=== PATIENT | female | born 1975 | race Caucasian/White ===

== ENCOUNTER → 2016-08-18 | Outpatient (CLI) | payer BC | LOC: FIMAGING 13:10 | DX: Z12.31 Encounter for screening mammogram for malignant neoplasm of breast (principal) | CPT/HCPCS: G0202 ==

== ENCOUNTER 2016-09-27 06:52 | Observation (INO) | payer BC ==
[2016-09-27] MEDS ORDERED: NS 1,000 ML IV ONE (06:54)
[2016-09-27] MEDS ORDERED: MIDAZOLAM 2 MG/2 ML VIAL IVP ONE (06:54)
--- NOTE | 2016-09-27 07:16 | CPEKG ---
Heart Rate: 76 RR Interval: 789 P-R Interval: 172 QRSD Interval: 90 QT Interval: 380 QTC Interval: 428 P [place]: 60 QRS [place]: 16 T Wave [place]: 52 EKG Severity - ABNORMAL ECG - EKG Impression: SINUS RHYTHM EKG Impression: MULTIPLE PREMATURE ATRIAL COMPLEXES EKG Impression: ANTERIOR INFARCT, OLD EKG Impression: COMPARED WITH 04/06/2015, LEFT ATRIAL ECTOPY NOW NOTED Electronically Signed By: Yajaira Messer 27-Sep-2016 16:37:46
[2016-09-27 07:36] LABS: % IMMATURE GRANULYOCYTES 0.4 % (0.0-1.1); ABSOLUTE IMMATURE GRANULOCYTES 0.03 10^3/uL (0.00-0.10); ADD DIFF? NO; ADD MORPH? NO; ADD SCAN? NO; ATYPICAL LYMPHOCYTE FLAG 10 (0-99); FRAGMENT RBC FLAG 0 (0-99); HEMOGLOBIN 14.7 g/dL (12.6-16.3); LEFT SHIFT FLG 0 (0-99); LIPEMIA HEMOLYSIS FLAG 90 (0-99); MEAN CELL HEMOGLOBIN 32.4 pg (27.9-34.1); MEAN CELL VOLUME 92.5 fL (81.5-99.8); MEAN PLATELET VOLUME 9.1 fL (8.7-11.7); PLATELET CLUMPS FLAG 0 (0-99); PLATELET COUNT 244 10^3/uL (150-400); RED BLOOD CELL COUNT 4.54 10^6/uL (4.18-5.33); RED CELL DISTRIBUTION WIDTH 12.4 % (11.5-15.2)
[2016-09-27 07:45] LABS: APTT 27.4 SEC (23.0-38.0); INR 1.01 (0.83-1.16); PROTIME(PATIENT) 13.2 SEC (12.0-15.0)
[2016-09-27 08:08] LABS: ANION GAP 11 mEq/L (8-16); CALCIUM 9.4 mg/dL (8.5-10.4); CARBON DIOXIDE 24 mEq/l (22-31); CHLORIDE 107 mEq/L (97-110); CREATININE 0.7 mg/dL (0.6-1.0); GLOMERULAR FILTRATION RATE > 60; GLUCOSE 95 mg/dL (70-100); POTASSIUM 3.9 mEq/L (3.5-5.2); SODIUM 142 mEq/L (134-144)
[2016-09-27] MEDS ORDERED: LIDOCAINE 1% 30 ML SDV ONE (08:17)
[2016-09-27] MEDS ORDERED: ISOPROTERENOL HCL 0.2 MG/ML 5ML AMP ONE (08:17)
[2016-09-27] MEDS ORDERED: BUPIVACAINE 0.5% 30 ML SDV ONE ×2 (08:17→11:23)
[2016-09-27] MEDS ORDERED: HEPARIN 10,000 UNIT/10 ML MDV ONE (08:17)
[2016-09-27] MEDS ORDERED: PHENYLEPHRINE HCL 100 MCG/ML SYR ONE (09:07)
[2016-09-27] MEDS ORDERED: ATROPINE SULFATE 1 MG/10 ML SYR ONE (11:52)
[2016-09-27] MEDS ORDERED: OXYCODONE/APAP 5/325 TAB PO PRN (12:00)
[2016-09-27] MEDS ORDERED: ACETAMINOPHEN 325 MG TAB PO PRN (12:00)
--- NOTE | 2016-09-27 12:07 | CPEKG ---
Heart Rate: 62 RR Interval: 968 P-R Interval: 172 QRSD Interval: 88 QT Interval: 412 QTC Interval: 419 P [place]: 49 QRS [place]: 25 T Wave [place]: 55 EKG Severity - ABNORMAL ECG - EKG Impression: SINUS RHYTHM EKG Impression: ANTERIOR INFARCT, OLD EKG Impression: COMPARED WITH 09/27/2016 AT 7:14 A.M., ATRIAL ECTOPY RESOLVED Electronically Signed By: Yajaira Messer 27-Sep-2016 16:36:36
[2016-09-27] MEDS ORDERED: IBUPROFEN 200 MG TAB PO PRN (20:16)
[2016-09-27] MEDS ORDERED: BISMUTH SUBSALICYLATE 524 MG/30 ML UDL PO PRN (20:17)
[2016-09-27] MEDS ORDERED: DILTIAZEM CD 180 MG CAP PO SCH (21:00)
[2016-09-27] MEDS: FLECAINIDE ACETATE 100 MG TAB PO SCH (21:42)
[2016-09-28 04:57] LABS: % IMMATURE GRANULYOCYTES 0.4 % (0.0-1.1); ABSOLUTE IMMATURE GRANULOCYTES 0.03 10^3/uL (0.00-0.10); ADD DIFF? NO; ADD MORPH? NO; ADD SCAN? NO; ATYPICAL LYMPHOCYTE FLAG 0 (0-99); FRAGMENT RBC FLAG 0 (0-99); HEMATOCRIT 40.3 % (38.0-47.0); HEMOGLOBIN 13.6 g/dL (12.6-16.3); LEFT SHIFT FLG 0 (0-99); LIPEMIA HEMOLYSIS FLAG 80 (0-99); MEAN CELL HEMOGLOBIN 32.2 pg (27.9-34.1); MEAN CELL HEMOGLOBIN CONCENTR. 33.7 g/dL (32.4-36.7); MEAN CELL VOLUME 95.5 fL (81.5-99.8); MEAN PLATELET VOLUME 9.6 fL (8.7-11.7); PLATELET CLUMPS FLAG 0 (0-99); PLATELET COUNT 215 10^3/uL (150-400); RED BLOOD CELL COUNT 4.22 10^6/uL (4.18-5.33); RED CELL DISTRIBUTION WIDTH 12.5 % (11.5-15.2)
[2016-09-28 05:06] LABS: INR 1.07 (0.83-1.16); PROTIME(PATIENT) 13.8 SEC (12.0-15.0)
[2016-09-28 05:24] LABS: ANION GAP 6 mEq/L (8-16); CALCIUM 8.7 mg/dL (8.5-10.4); CARBON DIOXIDE 22 mEq/l (22-31); CHLORIDE 112 mEq/L (97-110); CREATININE 0.7 mg/dL (0.6-1.0); GLOMERULAR FILTRATION RATE > 60; GLUCOSE 92 mg/dL (70-100); POTASSIUM 4.1 mEq/L (3.5-5.2); SODIUM 140 mEq/L (134-144)
[2016-09-28 05:36] LABS: CREATINE KINASE-MB FRACTION 2.08 ng/mL (0-3.19); TROPONIN I 0.232 ng/mL (0-0.034)
[2016-09-28 07:26] VITALS: BP 102/80; PULSE 67; RESP 12; TEMP 98.2; O2SAT 98
[2016-09-28] MEDS: FLECAINIDE ACETATE 100 MG TAB PO SCH (08:43)
--- NOTE | 2016-09-28 08:55 | CPEKG ---
Heart Rate: 61 RR Interval: 984 P-R Interval: 164 QRSD Interval: 92 QT Interval: 404 QTC Interval: 407 P [place]: 42 QRS [place]: 46 T Wave [place]: 64 EKG Severity - BORDERLINE ECG - EKG Impression: SINUS RHYTHM EKG Impression: CONSIDER ANTERIOR INFARCT Electronically Signed By: Yajaira Messer 28-Sep-2016 09:44:14
[2016-09-28] MEDS ORDERED: ASPIRIN EC 81 MG TAB PO SCH (09:00)
[2016-09-28] MEDS ORDERED: MULTIVITAMINS 1 EACH TAB PO SCH (09:00)
--- NOTE | 2016-09-28 13:31 | ECHO ---
[id number] + + [address] : : [place] [address] : : [phone] + + Adult Echocardiographic Report + + :Name: OUMAR SUTHERLAND Date: 09/28/2016 09:11 AM : : Hospital Admission Number: [id number] Loc ation: 204: :: 1975 Gender: Female Height: 67 in : :Age: 40 yrs Race: WH Weight: 199 lb : :Reason For Study: F/U post EP study : : BSA: 2.0 me ters2 : :History: h/o bicuspid AV : + + MMode/2D Measurements \T\ Calculations IVSd: 0.91 cm RVDd: 2.8 cm FS: 31.0 % Ao root diam: LVPWd: 0.95 cm LVIDd: 4.9 cm EDV(Teich): 2.6 cm LVIDs: 3.3 cm 110.2 ml ESV(Teich): 45.7 ml EF(Teich): 58.6 % LVOT diam: 2.1 cmLVLd ap4: 9.2 cm SV(MOD-sp4): LVOT area: EDV(MOD-sp4): 117.0 ml 3.3 cm2 169.0 ml LVLs ap4: 7.5 cm ESV(MOD-sp4): 52.0 ml EF(MOD-sp4): 69.2 % Normal Measurement Values: + + :LVIDd (3.5-5.7cm) IVSd (0.6-1.1cm) LVPWd (0.6-1.1cm) Aortic Root (2.0-3.7cm)Left Atrium (1.5-4.0cm): :LV Vol(d) (76-115ml) LV Vol(s) (29-48ml) Ejec Fraction (50-65%)PV Baljeet (0.6- 1.2m/s) TV Baljeet (0.4-1.0m/s) : :MV E Baljeet (0.8-1.0m/s)MV A Baljeet (0.3-1.0m/s)LVOT Baljeet (0.7-1.2m/s) Asc Ao Baljeet ( 0.9-1.8m/s) : + + Doppler Measurements \T\ Calculations MV E max baljeet: Ao V2 max: LV V1 mean PG: SV(LVOT): 98.7 cm/sec 206.3 cm/sec 2.9 mmHg 86.3 ml MV A max baljeet: Ao max P.0 mmHgLV V1 mean: 89.8 cm/sec Ao mean P.7 cm/sec MV E/A: 1.1 10.9 mmHg LV V1 VTI: 25.8 cm MV dec time: 0.32 sec Ao V2 mean: 158.8 cm/sec Ao V2 VTI: 50.3 cm STEPHANIE(I,D): 1.7 cm2 PA V2 max: TR max baljeet: 103.2 cm/sec 205.1 cm/sec PA max P.3 mmHg TR max P.8 mmHg RAP systole: 5.0 mmHg RVSP(TR): 21.8 mmHg Left Ventricle The left ventricle is normal in size and function. There is normal left ventricular wall thickness. Ejection Fraction = 60%. No regional wall motion abnormalities noted. Right Ventricle The right ventricle is normal in size and function. Atria The left atrial size is normal. Right atrial size is normal. There was no clot seen in the IVC. A patent foramen ovale is present. Mitral Valve The mitral valve is normal in structure and function. There is no mitral valve stenosis. There is trace to mild mitral regurgitation. Tricuspid Valve The tricuspid valve is normal in structure and function. There is trace to mild tricuspid regurgitation. Right ventricular systolic pressure is 22mmHg. Aortic Valve Bicuspid aortic valve with raphe. Mild valvular aortic stenosis. Trace aortic regurgitation. Pulmonic Valve The pulmonic valve is normal in structure and function. Trace pulmonic valvular regurgitation. Great Vessels The aortic root is normal size. No Doppler or imaging evidence of an aortic coarctation. Normal ascending aorta size. Pericardium/Pleural There is no pericardial effusion. Conclusion A two-dimensional transthoracic echocardiogram with M-mode and Doppler was performed. The left ventricle is normal in size and function. Ejection Fraction = 60%. There are no wall motion abnormalities. Bicuspid aortic valve. Trace aortic regurgitation. There is trace to mild mitral regurgitation. There is trace to mild tricuspid regurgitation. Right ventricular systolic pressure is 22mmHg. Trace pulmonic valvular regurgitation. No Doppler or imaging evidence of an aortic coarctation. Normal ascending aorta size. A patent foramen ovale is present. Final Reading Physician: Radha Varela signed on 09/28/2016 01:30 PM Ordering Physician: Claudio Murillo Performed By: Tania Heard
--- NOTE | 2016-09-28 13:43 | EPPROC ---
Electrophysiology Procedure Note: Procedure done 09/27/16 ELECTROPHYSIOLOGIC STUDY AND CATHETER MEDIATED ABLATION OF SLOW/FAST AV HORACIO REENTRY TACHYCARDIA AND PREMATURE ATRIAL BEATS PROCEDURES PERFORMED: 45724-28 EP evaluation with RA/RV/LA pace/record, with arrhythmia induction 60556-81 EP evaluation with RA/RV pace record, insert/reposition catheter, with arrhythmia induction 61108 Intracardiac catheter ablation, SVT arrhythmogenic focus Second arrhythmia 30072 3D mapping Fluoroscopy INDICATION: Frequent PAC Sustained palpitations PROCEDURE: Catheters & Anesthesia: The patient arrived in the Electrophysiology Laboratory in the fasting state. The right clavicular region, right groin, and left groin area were prepped and draped in the usual sterile manner. Procedure was done with patient fully awake. . Appropriate non-invasive blood pressure, pulse oximetry and end- tidal CO2 monitoring was established. All catheters were placed percutaneously using the modified Seldinger technique , and advanced into position under fluoroscopic guidance. One #7 Danish deflectable octapolar electrode catheter was advanced to the His-bundle position via the left femoral vein (2mm spacing). One #7 Danish deflectable catheter with 10 pairs of electrodes was placed via the right femoral vein into the coronary sinus. Heparin was given to keep ACT > 200 s. Programmed stimulation was performed from the right atrium, right ventricle and coronary sinus (left atrium). Parahisian pacing demonstrated constant H-A interval with changing V-A intervals and stimulus-A intervals during capture and loss of capture of proximal RBB proving retrograde conduction over AV node. 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 Ventricular extrastimuli delivered during tachycardia without altering antegrade His bundle activation did not advance next atrial potential, indicating that the tachycardia was not utilizing an accessory pathway for retrograde conduction. VA interval was 70 ms. Post entrainment of the tachycardia from the ventricle, there was VAHV response. Mapping of the right atrium and coronary sinus during AVNRT identified earliest atrial activation above the tendon of Lizbeth at a level slightly posterior to the level of the His bundle, consistent with retrograde conduction over the fast AV horacio pathway. Pentaray catheter was used to map the PAC and the SVT. A #8 Danish deflectable quadrapolar electrode catheter (2mm-5mm-2mm spacing) with 4 mm tip electrode and sensor for the 3D mapping Carto system was advanced to the right atrium. 3 D mapping of the inter-atrial septum and coronary sinus was performed and location of the AV node was marked. A SL2 sheath was used. RF applications were delivered to the region between the tricuspid annulus and the coronary sinus ostium, at the level of the upper edge of the coronary sinus ostium. Radiofrequency applications were also delivered along the roof of the proximal coronary sinus. Junctional rhythm occurred during all of the RF applications. We had planned to perform PAC ablation as well given that she had frequent unifocal PAC that were very symptomatic. PAC were eliminated post AVNRT ablation. Mapping at beginning of procedure showed that early activation for PAC was at the proximal roof of CS. RF applications were delivered to the proximal CS roof. Programmed stimulation was continued post ablation at baseline and during graded doses of isoproterenol upto 4mcg/min. Sustained AVNRT was not inducible. There were no echo beats. At the beginning of the procedure, PAC frequency increased with phenylephrine boluses. This was repeated post ablation , both before and after isoproterenol infusion. Over a waiting period of 1 hour , not a single PAC was seen post ablation. The catheters were removed. The long sheath was changed to a short 9 Fr sheath. The patient was transferred to the cardiovascular holding area in stable condition. Vascular access sheaths were removed in the holding area. There were no apparent complications. Results: A. Spontaneous Intervals: Pre ablation SCL 730 ms AH 55 ms HV 40 ms Post ablation SCL 640 ms AH 50 ms HV 40 ms B. Antegrade AV horacio function (decremental pacing) Pre ablation FPERP 370 ms SPERP 350 ms WBB CL 340 ms (AH jump from 180 ms to 270 ms at FPERP) Post ablation FPERP 340 ms WBB CL 330 ms C. Retrograde AV horacio function (decremental pacing) Pre ablation FPERP 390 ms WBB CL 380 ms D. Arrhythmias: Sustained slow/fast AVNRT Cycle length 350 ms, AH interval 290 ms, INMAN interval 60 ms VA interval 70 ms CONCLUSIONS 1. 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 ( Slow/fast AVNRT). 2. Successful ablation of the slow AV horacio pathway with elimination of 1:1 antegrade conduction over the slow AV horacio pathway, all retrograde conduction over the slow AV horacio pathway and the inducibility of AVNRT. 3. Premature atrial beats arising from the proximal CS, successful ablation. 4. No complications. Patient Problems: Problems Problem Status Onset Adenocarcinoma in situ of cervix Acute Dyspnea Acute Palpitations Acute Ventricular bigeminy Acute
--- NOTE | 2016-09-29 10:23 | GDS ---
[f rep st] DISCHARGE SUMMARY DISCHARGE DIAGNOSES: 1. Frequent premature atrial contractures in bigeminal pattern status post successful ablation of t he slow AV rafa pathway with elimination of one-to-one antegrade conduction. Successful ablation o f premature atrial beats arising from the proximal coronary sinus. 2. History of bicuspid aortic valve. PROCEDURES: 1. On 09/28/2016, EP study with detection of AV rafa range tachycardia using the slow AV rafa pat hway for antegrade conduction and fast AV rafa pathway for retrograde conduction, status post succe ssful ablation of the slow AV rafa pathway and also successful ablation of the premature atrial triny ts arising from the proximal coronary sinus. 2. On 09/28/2016, echocardiogram which demonstrates EF of 60%, bicuspid aortic valve with trace aor tic regurgitation, trace to mild mitral regurgitation, RVSP of 22. HISTORY OF PRESENT ILLNESS: This patient is a 40-year-old female with a known bicuspid aortic valve and frequent PACs. She has been treated medically since 04/2015 for her PACs with flecainide and d iltiazem, which has controlled her symptoms. However, she expressed desire to not take long-term me dications due to possible side effects. She therefore was taken off flecainide and diltiazem, and p roceeded to EP study with successful ablation of an AVNRT as well as premature atrial beats. HOSPITAL COURSE: On day of discharge, patient denies any groin pain, chest pain, or shortness of br eath. Telemetry shows no significant arrhythmias. Physical exam on day of discharge: Blood pressure of 102/80, heart rate of 67, respirations 12, O2 saturation 98% on room air, temp 98.2 degrees Fahrenheit. In general, she is a pleasant female in n o apparent distress. Eyes are PERRL. Heart regular rate and rhythm, with a 2/6 systolic ejection m urmur. Lungs are clear to auscultation bilaterally. Bilateral groin sites without erythema, ecchym osis or bruits auscultated. There are 2+ PT and DP pulses bilaterally. CBC shows WBC 7.73, hemoglobin 13.6, hematocrit 40.3, platelet count 215. BMP with sodium 140, pota ssium 4.1, chloride 112, CO2 of 222, BUN 14, creatinine 0.7, glucose of 92. Troponin 0.232 consiste nt with recent ablation. RESULTS PENDING: None. DIET: Per previous. ACTIVITY: Groin precautions reviewed. DISCHARGE MEDICATIONS: She is being discharged on her home ibuprofen, Pepto-Bismol. She is started on aspirin 81 mg p.o. daily for 6 weeks. DISCHARGE INSTRUCTIONS: 1. Groin precautions, as listed in discharge. 2. Follow up with Dr. Murillo in 1 month's time. /[id number]/MODL
== END 2016-09-28 11:55 | disposition home or self-care (01) ==
LOC: FCATH 06:52 → F2W 12:01
PROVIDERS: ADMIT Internal Medicine Cardiovascular Disease; ATTEND Internal Medicine Cardiovascular Disease
PROC: 02583ZZ Destruction of Conduction Mechanism, Percutaneous Approach (ICD-10-PCS; principal; 2016-09-27)
PROC: 4A023FZ Measurement of Cardiac Rhythm, Percutaneous Approach (ICD-10-PCS; principal; 2016-09-27)
PROC: 5A1213Z Performance of Cardiac Pacing, Intermittent (ICD-10-PCS; principal; 2016-09-27)
PROC: 02K83ZZ Map Conduction Mechanism, Percutaneous Approach (ICD-10-PCS; principal; 2016-09-27)
DX: I49.1 Atrial premature depolarization (principal); Q23.1 Congenital insufficiency of aortic valve; R53.83 Other fatigue; F41.9 Anxiety disorder, unspecified; R06.09 Other forms of dyspnea
CPT/HCPCS: 93005; 93306; G0378; J0461; J1644; J2250; J2370

== ENCOUNTER → 2017-09-14 | Outpatient (CLI) | payer OTHER ==
[~2017-09-14] MED LIST: GADOBUTROL 10 ML VIAL IVP ONE
== END ==
LOC: FIMAGING 06:45
PROVIDERS: ATTEND Internal Medicine Cardiovascular Disease
DX: I47.1 Supraventricular tachycardia (principal); I49.3 Ventricular premature depolarization; R55 Syncope and collapse; R00.2 Palpitations
CPT/HCPCS: A9585

== ENCOUNTER → 2017-10-19 | Outpatient (CLI) | payer OTHER ==
[~2017-10-19] MED LIST changes: -GADOBUTROL 10 ML VIAL IVP ONE; +IOPAMIDOL (ISOVUE-370) 150 ML BTL IV ONE
== END ==
LOC: FIMAGING 09:15
PROVIDERS: ATTEND Internal Medicine Cardiovascular Disease
DX: R94.39 Abnormal result of other cardiovascular function study (principal)
CPT/HCPCS: Q9967

== ENCOUNTER → 2018-01-25 | Outpatient (CLI) | payer OTHER | LOC: FIMAGING 14:30 | PROVIDERS: ATTEND Nurse Practitioner | DX: Z12.31 Encounter for screening mammogram for malignant neoplasm of breast (principal); Z80.3 Family history of malignant neoplasm of breast ==

== ENCOUNTER 2018-05-08 03:20 | Emergency (ER) | payer OTHER ==
--- NOTE | 2018-05-08 04:01 | EDPHY ---
H & P Time Seen by Provider: 05/08/18 03:44 HPI/ROS: This patient was awakened by dyspnea this evening. She describes orthopnea and explains this is in the setting of a cough. She describes a 4 day history of coughing that was initially productive associated with coryza, sore throat and myalgias. She had subjective fevers as well and spoke with her mid-level practitioner over the phone who called in a Tamiflu prescription for her 3 days ago which she has been taking. She feels that the cough is now more dry but her other symptoms have persisted. ROS: Constitutional: No high fevers or chills HEENT: Coryza without sinus pain. Nose with throat currently. No ear pain. Pulmonary: No pleuritic pain. No respiratory distress. No hemoptysis. Cardiovascular: Heart palpitations with awakening tonight similar to prior heart palpitations. She describes this is a feeling of extra beats. She denies any lower extremity swelling or calf pain. GI: No nausea or vomiting Neuro: No complaints integumentary: No skin rash 10 point review of symptoms is performed and otherwise negative with exception of pertinent positives and negatives listed in HPI and ROS Past Medical/Surgical History: PACs with cardiac ablation for accessory AV node in September [address] Murillo. This is performed after the patient had been having SVT She 3 months after the heart ablation then had further heart palpitations and drinks follow-up stress test had a nonsustained run of ventricular tachycardia documented. She was placed on carvedilol due to this finding. Bicuspid aortic valve Smoking Status: Never smoked Physical Exam: Vital signs are normal exception of hypertension initially 168 of 109 General Appearance: Alert, no distress. Eyes: Pupils equal and round no pallor or injection. ENT, Mouth: Mucous membranes moist. Respiratory: There are no retractions, lungs are clear to auscultation. Cardiovascular: Regular rate and rhythm with occasional gallop, no significant murmur. No rub. No peripheral edema. No leg swelling or tenderness Gastrointestinal: Abdomen is soft and nontender, no masses, bowel sounds normal. Neurological: GCS 15 Skin: Warm and dry, no rashes. Musculoskeletal: Neck is supple nontender. Extremities are symmetrical, full range of motion. Psychiatric: Mood and affect are normal DIFFERENTIAL DIAGNOSIS: After history and physical exam differential diagnosis was considered for viral URI with cough, bronchitis, influenza, viral myocarditis, PE, congestive heart failure, doubt pneumonia Constitutional: Initial Vital Signs Temperature (C) 36.8 C 05/08/18 03:31 Heart Rate 93 05/08/18 03:31 Respiratory Rate 18 05/08/18 03:31 Blood Pressure 168/109 H 05/08/18 03:31 O2 Sat (%) 98 05/08/18 03:31 O2 Delivery Mode Room Air Allergies/Adverse Reactions: No Known Allergies Allergy (Verified 04/06/16 16:01) Home Medications: Medication Instructions Recorded Herbals/Supplements -Info Only 1 ea PO DAILY 04/04/15 Bismuth Subsalicylate 15 ml PO Q3 PRN 03/31/16 [Pepto-Bismol oral liquid (*)] Ibuprofen [Motrin (*)] 200 mg PO DAILY PRN 09/27/16 Multivitamins [Multivitamin (*)] 1 each PO DAILY 09/27/16 Carvedilol 05/08/18 Fluticasone Hfa 220 Mcg [Flovent 2 puffs IH DAILY #1 mdi 05/08/18 220 MCG Hfa MDI (*)] Levalbuterol Inhaler [Xopenex Hfa 2 puffs IH Q4 PRN #1 mdi 05/08/18 Inhaler] MDM/Departure - MDM Diagnostics: Peak flows 325 with predicted of 460 12 lead EKG indication dyspnea with history of bicuspid aortic valve and heart palpitations rule out evidence of right heart strain or other abnormalities Performed at 4:08 a.m.-sinus rhythm at 80 for Intervals: P R of 160, QRS of 79, QTC 436 [place]: P of 66, QRS of 22, T of [address] segments: Normal throughout. Patient has anterior Q-waves present on prior EKG dated 09/27/2016 Overall assessment sinus rhythm with anterior Q-waves present on prior EKG no acute abnormalities are appreciated. Labs: Normal POC CBC, normal metabolic panel, D-dimer is normal, troponin is normal, BNP is normal Imaging Results: Two view chest x-ray: Normal heart size, no focal infiltrates or effusion, mild airway prominence consistent with bronchitis by my interpretation Medications Given: Discontinued Medications Levalbuterol (Xopenex 1.25mg Neb) 1.25 mg IH EDNOW ONE Stop: 05/08/18 05:10 Last Admin: 05/08/18 05:13 Dose: 1.25 mg ED Course/Re-evaluation: Patient is placed on a monitor - she is noted to have intermittent PACs while in the emergency department Peak flow mildly diminished at 325 with a predicted of 450 Xopenex neb with mild subjective improvement her dyspnea. Repeat peak flow 340 Review of labs-normal POC CBC, basic metabolic panel, normal troponin, normal D- dimer, BNP sent and pending Discussion: Patient's findings most consistent with viral bronchitis. I think the this is the cause of her dyspnea tonight. Given her background history of bicuspid aortic valve, previous ectopy and presence of carvedilol, I pursued more of workup in this patient rule out cardiac etiology, PE or other findings given noted change in her baseline EKG, normal troponin, normal D-dimer and normal BNP-no evidence of pulmonary embolism, acute structural or ischemic cardiac disease, affected rule out of CHF-discovered no "red flag findings" in her workup, I think that she is safe for discharge home. She feels improved after treatment with Xopenex neb. She understands need to return emergency department should she develop any worsening of symptoms despite the treatment plan of Xopenex inhaler, humidifier and follow up with primary care physician. - Depart Disposition: Home, Routine, Self-Care Clinical Impression: Viral bronchitis Dyspnea Qualifiers: Dyspnea type: shortness of breath Qualified Code(s): R06.02 - Shortness of breath; R06.00 - Dyspnea, unspecified; R06.01 - Orthopnea Condition: Good Instructions: Acute Bronchitis (ED) Additional Instructions: Diagnosis: 1. Dyspnea 2. Viral bronchitis As we discussed, a there is some swelling in her bronchi that is contributing to feeling of shortness of breath. Plan: Xopenex inhaler with spacer if needed for cough, wheeze or shortness of breath Humidifier If you peak flows improving spontaneously over the next few days then start Flovent steroid inhaler in use that steroid inhaler in addition for 7-10 days. Return emergency department if he developed chest pain, increasing dyspnea that is not responding to medications, or other concerns. Follow-up with primary care physician for any ongoing symptoms despite treatment plan Prescriptions: Fluticasone Hfa 220 Mcg [Flovent 220 MCG Hfa MDI (*)] 2 puffs IH DAILY #1 mdi Levalbuterol Inhaler [Xopenex Hfa Inhaler] 2 puffs IH Q4 PRN #1 mdi PRN Reason: Wheezing Referrals: Patient,NotPresent [Primary Care Provider] - As per Instructions Jarrod Nieves MD [Medical Doctor] - As per Instructions
[2018-05-08] MEDS ORDERED: LEVALBUTEROL 1.25 MG/3 ML DEYVIAL IH ONE (05:09)
[2018-05-08 05:55] VITALS: BP 149/80
--- NOTE | 2018-05-08 05:56 | CPEKG ---
Test Reason : OPEN Blood Pressure : / mmHG Vent. Rate : 084 BPM Atrial Rate : 086 BPM P-R Int : 168 ms QRS Dur : 079 ms QT Int : 368 ms P-R-T Axes : 066 022 039 degrees QTc Int : 436 ms Sinus rhythm LAE, consider biatrial enlargement Anterior infarct, old No significant interval change when compared to an ECG dated 09/27/16 Confirmed by Renan Jain ([id number]) on 05/08/2018 5:55:44 AM Referred By: Confirmed By:Renan Jain
== END 2018-05-08 06:24 | disposition home or self-care (01) ==
LOC: CED 03:20
DX: J20.8 Acute bronchitis due to other specified organisms (principal)
CPT/HCPCS: 71046-PO; 80048-PO; 84484-PO